=== PATIENT | male | born 1960 | race Caucasian/White ===

== ENCOUNTER 2024-05-21 18:40 | Emergency (ER) | payer OTHER, SELFPAY ==
[2024-05-21] VITALS (13 sets, daily range): BP systolic 151–191; BP diastolic 108–126; PULSE 126–133; RESP 18; TEMP 36.7–37.1; O2SAT 93–98; BMI 29.3
--- NOTE | 2024-05-21 21:03 | ED_ITS ---
HPI - General Adult General Chief complaint: Hypertension Stated complaint: High Blood Pressure Time Seen by Provider: 05/21/24 21:03 History of Present Illness HPI narrative: BP elevated, elevated HR Was fishing over the weekend?drinking involved No other symptoms Can tell something isn't right Previously had AFib- 63-year-old man presenting to the emergency department with concern of not feeling well with elevated blood pressure and elevated heart rate. Not complaining of a headache. Was fishing this last weekend. Just today though was feeling like something was not right. Notices heart rate was high as high as 140s. He says when as that he does make a practice checking his heart rate daily. His blood pressure also he measured today at 170s over 110. Is not having chest pain. Not short of breath. Not feeling lightheaded. Does have a history of atrial fibrillation and cardioversion and ultimately ablation. This also was done as he eventually entered atrial flutter he says. Was ablated again. Not currently on rate control or anticoagulation. Related Data Previous Rx's ?Medication ?Instructions ?Recorded apixaban 5 mg tablet 5 mg PO BID #60 tabs 05/22/24 Allergies Allergy/AdvReac Type Severity Reaction Status Date / Time No Known Drug Allergies Allergy Verified 05/21/24 19:02 Review of Systems Status of ROS: Reports: 6 or more systems reviewed and unremarkable except as noted in History and below PFSH PFS Social History Smoking Status: Never smoker How often do you have a drink containing alcohol: 4 or more times a week How many standard drinks containing alcohol do you have on a typical day: 1 or 2 AUDIT-C Alcohol total score: 4 Non-prescribed substance use: denies use Exam Narrative: Exam Narrative: Pleasant. NAD. Breathing easily. Lungs are clear. Heart is tachycardic with occasional irregular beat. Abdomen is overweight and soft. Extremities are well perfused without edema. Mentally quite clear. Speaking clearly. Const: Vital Signs, click to edit/add: Vital Signs - 24 hr 05/21/24 18:57 05/21/24 21:54 05/21/24 22:21 Temperature 98.0 F 98.8 F 98.6 F Pulse Rate 129 H Pulse Rate [Pulse Oximeter] 133 H 126 H Respiratory Rate 18 18 18 Blood Pressure 151/108 H Blood Pressure [Ri ght Upper Arm] 175/124 H 175/126 H Pulse Oximetry 96 95 94 Oxygen Delivery Me thod Room Air Room Air Room Air 05/21/24 22:22 05/21/24 22:30 05/21/24 22:44 Temperature Pulse Rate 128 H 128 H 130 H Pulse Rate [Pulse Oximeter] Respiratory Rate Blood Pressure 191/124 H Blood Pressure [Ri ght Upper Arm] Pulse Oximetry 95 96 98 Oxygen Delivery Me thod 05/21/24 22:45 05/21/24 23:00 05/21/24 23:15 Temperature Pulse Rate 130 H 128 H 127 H Pulse Rate [Pulse Oximeter] Respiratory Rate Blood Pressure Blood Pressure [Ri ght Upper Arm] Pulse Oximetry 98 94 93 Oxygen Delivery Me thod 05/21/24 23:18 05/21/24 23:19 05/21/24 23:30 Temperature Pulse Rate 127 H 127 H 128 H Pulse Rate [Pulse Oximeter] Respiratory Rate Blood Pressure 162/110 H Blood Pressure [Ri ght Upper Arm] Pulse Oximetry 95 94 94 Oxygen Delivery Me thod 05/21/24 23:45 05/22/24 00:22 05/22/24 00:27 Temperature Pulse Rate 127 H 129 H 129 H Pulse Rate [Pulse Oximeter] Respiratory Rate 19 21 Blood Pressure 176/113 H 170/116 H Blood Pressure [Ri ght Upper Arm] Pulse Oximetry 97 96 97 Oxygen Delivery Me thod 05/22/24 00:30 05/22/24 00:32 05/22/24 00:36 Temperature Pulse Rate 130 H 131 H 129 H Pulse Rate [Pulse Oximeter] Respiratory Rate 18 13 12 Blood Pressure 164/137 H 166/108 H Blood Pressure [Ri ght Upper Arm] Pulse Oximetry 96 97 97 Oxygen Delivery Me thod 05/22/24 00:41 05/22/24 00:45 05/22/24 00:46 Temperature Pulse Rate 77 Pulse Rate [Pulse Oximeter] Respiratory Rate 20 19 19 Blood Pressure 116/77 123/83 Blood Pressure [Ri ght Upper Arm] Pulse Oximetry 96 Oxygen Delivery Me thod 05/22/24 00:47 05/22/24 00:51 05/22/24 00:56 Temperature Pulse Rate Pulse Rate [Pulse Oximeter] Respiratory Rate 21 16 Blood Pressure 124/83 132/77 140/100 H Blood Pressure [Ri ght Upper Arm] Pulse Oximetry Oxygen Delivery Me thod Documenting provider has reviewed patient's vital signs: yes Course Vital Signs Vital signs: Initial Vital Signs Temperature 98.0 F 05/21/24 18:57 Temperature Source Temporal Artery Scan 05/21/24 18:57 Pulse Rate 133 H 05/21/24 18:57 Pulse Rhythm Irregular 05/21/24 18:57 Respiratory Rate 18 05/21/24 18:57 Blood Pressure 175/124 H 05/21/24 18:57 Blood Pressure Mean 141 H 05/21/24 18:57 Blood Pressure Position Sitting 05/21/24 18:57 Pulse Oximetry 96 05/21/24 18:57 Oxygen Delivery Method Room Air 05/21/24 18:57 Vital Signs Temperature 98.0 F 05/21/24 18:57 Pulse Rate 133 H 05/21/24 18:57 Respiratory Rate 18 05/21/24 18:57 Blood Pressure 175/124 H 05/21/24 18:57 Pulse Oximetry 96 05/21/24 18:57 Oxygen Delivery Method Room Air 05/21/24 18:57 Temperature 98.6 F 05/21/24 22:21 Pulse Rate 77 05/22/24 00:41 Respiratory Rate 16 05/22/24 00:51 Blood Pressure 140/100 H 05/22/24 00:56 Pulse Oximetry 96 05/22/24 00:41 Oxygen Delivery Method Room Air 05/21/24 22:21 Medications Administered Medications: Discontinued Medications Generic Name Dose Route Start Last Admin Trade Name Freq PRN Reason Stop Dose Admin Diltiazem HCl 20 mg 05/21/24 21:10 05/21/24 22:09 Diltiazem 5 Mg/Ml Inj IVP 05/21/24 21:11 20 mg ONCE ONE Administration Sodium Chloride 1,000 mls @ 1,000 mls/hr 05/21/24 21:10 05/21/24 23:17 0.9 % Sodium Chloride 1000 Ml IV 05/21/24 22:09 Infused .Q1H ONE Infusion Metoprolol Tartrate 5 mg 05/21/24 22:16 05/21/24 23:11 Metoprolol Tartrate 1 Mg/Ml Inj IVP 05/21/24 22:17 5 mg ONCE ONE Administration Medical Decision Making MDM Narrative Medical decision making narrative: EKG review prior to going into the room. Looks to be in a sinus tachycardia 136. Irregularly irregular beats though somewhat on auscultation. I would like to slow down this rhythm and see what is maybe underneath your. Will hydrate. Check basic labs. Monitor. Initial EKG been reviewed by me looks to show sinus tachycardia rate of 136. There is some aspect to lead to the might suggest more of an AFib a flutter picture. Dosed with diltiazem and then metoprolol. Reviewed again on monitor here showing looks to be a flutter. Confirmed on repeat EKG Did discuss this case with Cardiology. In agreement with cardioversion and then to Remi. Contacted Anesthesia for help with sedation for electrical cardioversion. Following cardioversion, returned to normal sinus. See procedural note Vitals stable and easily ambulatory from the ER with his spouse. See patient discharge plan for further discussion Stay well-hydrated ...with water :) Please revisit using your CPAP. Expect a call from [facility] to arrange follow-up. You received a dose of apixaban as anticoagulation here in the emergency department. Recommendations are to continue this twice daily for a month. Return for persistent increased heart rate, lightheadedness, chest pain, shortness of breath. Safe travels Lab Data Lab results reviewed: Yes I reviewed the patient's lab results Labs: Lab Results 05/21/24 05/21/24 Range/Units 21:57 23:14 Hgb 15.1 (13.5-17.5) gm/dL Sodium 137 (135-149) mmol/L Potassium 3.8 (3.6-5.1) mmol/L Chloride 99 (96-114) mmol/L Carbon Dioxide 28 (20-32) mmol/L Anion Gap 10 (7-15) mEq/L BUN 11 (7-30) mg/dL Creatinine 0.7 (0.5-1.5) mg/dL Estimated Creat Clear 80.53 Estimated GFR 104 ml/min Glucose 114 (60-115) mg/dL Calcium 8.9 (8.4-10.6) mg/dL Magnesium 2.0 (1.5-2.6) mg/dL TSH 6.070 H (0.270-4.20) uIU/mL SARS-CoV-2 (PCR) Negative SARS-CoV-2 (Negative) Influenza Type A (PCR) Negative PCR FLU A (Negative) Influenza Type B (PCR) Negative PCR FLU B (Negative) Lab Acknowledgement Test Added ECG Data Attestation: I personally reviewed and interpreted this ECG as follows: (#1 sinus tach at 136 #2 atrial flutter at 128 #3 post-electrical cardioversion normal sinus at 77) Critical Care Time Critical Care Time Critical Care Time: Yes Attestation: The patient required my highest level preparedness to intervene emergently and I personally spent this critical care time directly and personally managing the patient. This critical care time included: Obtaining a history; Examining the patient; Pulse oximetry; Ordering and reviewing of studies; Arranging urgent treatment with development of a management plan; Evaluation of patients response to treatment; Frequent reassessment discussions with other providers. This critical care time was performed to assess and manage the high probability of imminent life-threatening deterioration that could result in multiorgan failure. It was exclusive of separate billable procedures and treating other patients and teaching time. Total Critical Care Time in Minutes: 50 Discharge Plan Discharge Clinical Impression: Atrial flutter with rapid ventricular response Patient Disposition: Home w/ Parent or Adult Condition: Improved Instructions: Atrial Flutter (ED), Blood Thinners (ED) Additional Instructions: Stay well-hydrated ...with water :) Please revisit using your CPAP. Expect a call from [facility] to arrange follow-up. You received a dose of apixaban as anticoagulation here in the emergency department. Recommendations are to continue this twice daily for a month. Return for persistent increased heart rate, lightheadedness, chest pain, shortness of breath. Safe travels Prescriptions: New apixaban 5 mg tablet 5 mg PO BID Qty: 60 2RF Follow Up/Referrals: Provider,Not a Local [Primary Care Provider] - Stand Alone Forms: [employer] Info Instructions Procedures Additional Procedures Procedure name: Electrical cardioversion Pre procedure diagnosis: Atrial flutter with rapid ventricular response Post procedure diagnosis: Atrial flutter with rapid ventricular response Written consent by: patient Site marking: not applicable Verification/time out: correct patient Conclusion: patient tolerated procedure Additional comments: Following appropriate sedation was propofol, shocked at 200 joules. Synced cardioversion. Returned to normal sinus directly. Rate in the 80s
[2024-05-21] MEDS: 0.9 % SODIUM CHLORIDE 1000 ml 1,000 ML IV (22:09)
[2024-05-21] MEDS: dilTIAZem 5 MG/ML inj 20 MG IVP (22:09)
[2024-05-21 22:15] LABS: Chloride* 99 mmol/L (96-114)
[2024-05-21 22:16] LABS: Hemoglobin* 15.1 gm/dL (13.5-17.5); Potassium* 3.8 mmol/L (3.6-5.1); Sodium* 137 mmol/L (135-149)
[2024-05-21 22:18] LABS: Creatinine* 0.7 mg/dL (0.5-1.5); Est. Creatinine Clearance* 80.53; Estimated Glomerular Filt Rate 104 ml/min
[2024-05-21 22:19] LABS: Anion Gap 10 mEq/L (7-15); Blood Urea Nitrogen* 11 mg/dL (7-30); Calcium* 8.9 mg/dL (8.4-10.6); Carbon Dioxide* 28 mmol/L (20-32); Glucose* 114 mg/dL (60-115)
[2024-05-21 22:39] LABS: PCR FLU A Negative PCR FLU A (Negative); PCR FLU B Negative PCR FLU B (Negative); SARS PCR* Negative SARS-CoV-2 (Negative)
[2024-05-21] MEDS: METOPROLOL TARTRATE 1 MG/ML inj 5 MG IVP (23:11)
[2024-05-22] VITALS (11 sets, daily range): BP systolic 116–176; BP diastolic 77–137; PULSE 77–131; RESP 12–21; O2SAT 96–97
--- NOTE | 2024-05-22 00:47 | W.ANESCHARGE ---
Anesthesia Charges Start Date/Time Anesthesia Start Date: 05/22/24 Anesthesia Start Time: 00:32 Stop Date/Time Anesthesia Stop Date: 05/22/24 Anesthesia Stop Time: 00:44 Summary Emergency: EDUCATION INTERN Coding CPT Codes CPT Codes: ANESTH CORRECT HEART RHYTHM - 07524 ([id number]) P2 - PATIENT W/MILD SYST DISEASE, QZ - EDUCATION INTERN SVC W/O EQUIPMENT OPERATOR/LABORER BY Additional Codes: Summary - Emergency: EDUCATION INTERN ([id number])
== END 2024-05-22 01:07 | disposition home or self-care (01) ==
PROVIDERS: Emergency Provider Family Medicine
DX: I48.91 Unspecified atrial fibrillation (principal); R00.0 Tachycardia, unspecified
CPT/HCPCS: 92960; 00410; 36415; 80048; 83735; 84443; 85018; 87631; 93005; 99140; 99284; 99291; J2704; J7030

== ENCOUNTER 2024-12-09 10:27 | Emergency (ER) | payer OTHER, SELFPAY ==
[2024-12-09] VITALS (9 sets, daily range): BP systolic 116–148; BP diastolic 97–112; PULSE 108–147; RESP 12–22; TEMP 36.4; O2SAT 95–97
--- OUTSIDE RECORDS SUMMARY | 2024-12-09 10:29 | XMS_ITS | Clinical Summary ---
Author Organization [employer] [facility] Address [address] [place] [id number] Care Team Providers Care Fleet Administrator Name Role Phone Allie Shea DO Primary Care Provider Allergies No known active allergies Medications FISH OIL 1,000 MG CAP 1800 mg, 1-2 times daily Active MEDICATION ORDER COMPOSER Adrenal Support, Once daily Active ENZYME DIGEST CAP take 1 tablets with most meals Active CPAPIndications :JOSÉ MIGUEL (obstructive sleep apnea) As directed. CPAP [id number], heated humidifier, mask, headgear, filters and tubing. For home use. Length of Need:99 1 unit 0 1 Active Additional Information Patient not taking.Informant: Patient's Recall, Reported on 06/07/2024 ORDER - MEDICATION ORDER COMPOSER 1-2 Tabs once daily. Total Heart supplement 1 Active medication order composer omega 3, stress support, immune support. vitamin d 0 3 Active Eliquis 5 mg tablet Take 1 Tablet by mouth two times daily. 5 Active medication order composer Pt taking old Metoprolol tabs. Not sure of strength. 1 tab QD. 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 Boyle keno terminal operator (current) use of anticoagulants 04/01/2011 Overview (06/09/2010): -INR goal range venous 2.0-3.0 or finger stick 2.5-3.5 Family History Medical History Relation Name Comments Other Father colon polyps Other Mother d75 hx of proba ble breast ca w met Relation Name Status Comments Father Mother Social History Tobacco Use Types Packs/Day Years Used Date Smoking Tobacco: Passive Smo ke Exposure - Never Smoker Cigars Smokeless Tobacco: Current Chew Tobacco Cessation:Counseling Given: Yes Comments:chews Alcohol Use Standard Drinks/Week Comments Yes 0 (1 standard drink = 0.6 oz pur e alcohol) 3-4 drinks a day PHQ-2 Answer Date Recorded PHQ-2 TOTAL SCORE 0 01/17/2023 Sex and Gender Information Value Date Recorded Sex Assigned at Not on file Legal Sex Male 7:27 AM ASSISTANT CURATOR Gender Identity Not on file Sexual Orientation Not on file Obstetrics History Last Filed Vital Signs Vital Sign Reading Time Taken Comments Blood Pressure 124/86 06/07/2024 2:03 PM ASSISTANT CURATOR Pulse 57 06/07/2024 2:03 PM ASSISTANT CURATOR Temperature 36.9 C (98.5 F) 03/24/2013 9:05 AM ASSISTANT CURATOR Respiratory Rate 18 02/15/2012 8:51 AM CDT Oxygen Saturation 99% 06/07/2024 2:03 PM ASSISTANT CURATOR Inhaled Oxygen Concentration - - Weight 98 kg (216 lb) 06/07/2024 2:03 PM ASSISTANT CURATOR Height 179.1 cm (5' 10.5) 06/07/2024 2:[address] Body Mass Index 30.55 06/07/2024 2:03 PM ASSISTANT CURATOR Plan of Treatment Health Maintenance Due Date Last Done Comments Depression screening for age 12+ 1972 Pneumococcal series for age 50+ (1 of 2 - PCV) 10/27/1979 Colonoscopy through age 75 2005 Zoster (shingles) series for age 50+ (1 of 2) 2010 Tetanus booster 12/18/2020 12/18/2010 (Declined) COVID-19 vaccine series ( - ) 12/25/2023 Influenza Vaccine (#1) 2024 BMI (ht and wt on same day) for age 18+ 06/07/2025 06/07/2024, 01/17/2023 Lipids for age 45-75 01/18/2028 01/17/2023, 12/11/2010 RSV vaccine for adults or (1 - 1-dose 75+ series) 10/27/2035 HIV for age 15-65 Completed 01/17/2023 Hepatitis C screening for ag e 18-79 Completed 01/17/2023 Hepatitis B series for 19+ Aged Out N o longer eligible based on patient's age to complete this topic Procedures Procedure Name Priority Date/Time Associated Diagnosis Comments ANTI HIV 1/2 Routine 01/17/2023 9:00 AM CDT Screening for HIV (human immunodeficiency virus) ANTI HCV Routine 01/17/2023 9:00 AM CDT Need for hepatitis C screening test LIPID PANEL W REFLEX MEASURED LDL Routine 01/17/2023 9:00 AM CDT Hyperlipidemia, unspecified hyperlipidemia type from Last 3 Months or Most Recently Relevant to Health Maintenance Results * (ABNORMAL) LIPID PANEL W REFLEX MEASURED LDL (01/17/2023 9:00 AM CDT) CHOLESTEROL,TOTAL 245(H) 100 - 199 mg/dL 01/17/2023 4:59 PM CDT [facility] Comment: Cholesterol, Total Reference Ranges Desirable <200 mg/dL Borderline 200-239 mg/dL High >=240 mg/dL TRIGLYCERIDES 66 <150 mg/dL 01/17/2023 4:59 PM CDT [facility] HDL CHOLESTEROL 97 >40 mg/dL 4:59 PM CDT [facility] NON-HDL CHOLESTEROL 148(H) <145 mg/dl 01/17/2023 4:59 PM CDT [facility] CHOL/HDL RATIO 2.53 <4.50 01/17/2023 4:59 PM CDT [facility] LDL CHOLESTEROL 135(H) <=130 mg/dL 01/17/2023 4:59 PM CDT [facility] VLDL CHOLESTEROL 13 <=30 mg/dL 01/17/2023 4:59 PM CDT [facility] PROVIDER ORDERED STATUS RANDOM 01/17/2023 4:59 PM CDT [facility] Blood BLOOD SPECIMEN / Unknown Venipuncture / Unknown 01/17/2023 9:00 AM CDT 01/17/2023 9:01 AM CDT Allie Noguerat DO CHEMISTRY Final Resul t [facility] [address] [place] [address], * ANTI HCV (01/17/2023 9:00 AM CDT) HEPATITIS C ANTIBODY Non-Reacti ve Non-React opal 01/17/2023 4:40 PM CDT [facility] Comment:Please note, per www .CDC.gov: If a patient is known to be at high risk of HCV infection, or is symptomatic, and the physician's suspicion of HCV infection is high, HCV RNA testing is often employed and is of diagnostic value, even after an initial negative anti-HCV test result. Blood BLOOD SPECIMEN / Unknown Venipuncture / Unknown 01/17/2023 9:00 AM CDT 01/17/2023 9:01 AM CDT us Allie Shea DO SEND OUTS Final Resul t Performing Organization Address [facility] Co de Phone Number [facility] [address] [place] [phone], [place] * ANTI HIV 1/2 [17357.0] (01/17/2023 9:00 AM CDT) HIV-1/HIV-2 SCREEN Non-Reacti ve Non-Reacti ve 01/17/2023 4:39 PM CDT [facility] Comment:HIV-1 p24 and HIV-1/ HIV-2 Ab Not Detected. Blood BLOOD SPECIMEN / Unknown Venipuncture / Unknown 01/17/2023 9:00 AM CDT 01/17/2023 9:01 AM CDT us Allie Shea DO SEND OUTS Final Resul t Performing Organization Address [facility] de Phone Number [facility] [address] [place] [phone], from Last 3 Months or Most Recently Relevant to [place] [id number] [facility] [employer] Advance Directives Documents on File Type Date Recorded Patient Shrimp Trawler Captain Expl anation Healthcare Directive 05/10/2010 * Full Code (Latest Code Status on File) Date Activated Date Inactivated Comments 01/18/2011 7:40 AM 01/19/2011 1:00 PM * Full Code Date Activated Date Inactivated Comments 12/24/2010 8:09 AM 12/24/2010 1:54 PM * Full Code Date Activated Date Inactivated Comments 06/09/2010 8:19 AM 06/09/2010 1:16 PM * Full Code Date Activated Date Inactivated Comments 05/19/2010 9:21 AM 05/20/2010 8:45 PM * Full Code Date Activated Date Inactivated Comments 05/19/2010 9:09 AM 05/19/2010 9:21 AM Care Teams Fleet Administrator Relationship Specialty Start Date End Date Allie Shea DO [address] [place] [address] PCP - General Family Practice 05/11/10
[2024-12-09 11:14] LABS: Hematocrit 45.0 % (37.0-53.0); Hemoglobin* 14.8 gm/dL (13.5-17.5); Immature Granulocytes Abs Auto 0.01 K/uL (0.00-0.30); Immature Granulocytes Pct Auto 0.1 %; Lymphocytes Absolute Auto 2.32 K/uL (0.90-2.90); Mean Corpuscular HGB Conc 33 gm/dL (32-36); Mean Corpuscular Hemoglobin 31 pg (26-34); Mean Corpuscular Volume 94 fL (80-100); RDW Coefficient of Variation % 13.0 % (11.5-15.5); Red Blood Count 4.81 m/uL (4.30-5.90); White Blood Count* 7.46 K/uL (4.50-11.00)
[2024-12-09 11:26] LABS: Slide Review Reflex No
[2024-12-09] MEDS: METOPROLOL TARTRATE 1 MG/ML inj 5 MG IVP ×2 (11:35→13:07)
[2024-12-09] MEDS: MAGNESIUM IV 2 GM/50 ML PIGGYBACK IVPB (11:44)
[2024-12-09 11:54] LABS: Chloride* 106 mmol/L (96-114); Sodium* 137 mmol/L (135-149)
[2024-12-09 11:55] LABS: Potassium* 4.1 mmol/L (3.6-5.1)
[2024-12-09 11:57] LABS: Blood Urea Nitrogen* 17 mg/dL (7-30); Creatinine* 0.9 mg/dL (0.5-1.5); Est. Creatinine Clearance* 79.48; Estimated Glomerular Filt Rate 95 ml/min
[2024-12-09 11:58] LABS: Anion Gap 7 mEq/L (7-15); Calcium* 9.1 mg/dL (8.4-10.6); Carbon Dioxide* 24 mmol/L (20-32); Glucose* 110 mg/dL (60-115)
[2024-12-09 12:07] LABS: Ethanol* < 0.01 % (0.01-0.03)
--- NOTE | 2024-12-09 12:34 | ED.GENADULT ---
HPI - General Adult General Chief complaint: Arrhythmia/Palpitations Stated complaint: Heart Rhythm Issue Time Seen by Provider: 12/09/24 10:58 History of Present Illness HPI narrative: Very pleasant 64-year-old gentleman with a history of atrial fibrillation/flutter presents to the ER today with atrial flutter and tachycardia. History from the patient is that he has a long history of paroxysmal AFib and flutter. Sounds like this dates back 10 or 15 years. He has a long relationship with [facility]. He has had at least 2 previous ablation is a and has had multiple cardioversions. After his most recent ablation he had gone several years with no symptoms of tachycardia. He did have an episode in May that required cardioversion. His most recent visit with Cardiology was in the spring of this year. It sounds like he was stable at that time. He subsequently has taken himself off of metoprolol on on Eliquis. Had not been taking any regular Eliquis since June or July. He was on a fishing trip to [place] last week and on Tuesday or felt himself go into flutter. His heart rate has been in the 140s ever since that time. Does not really go way. He recalls that in the past when he goes into flutter he needs cardioversion to get out of it. He is otherwise feeling fine. No lightheadedness. No presyncope. No chest pain. No shortness of breath. No swelling in his legs. He finally got home from his fishing trip on Tuesday. Yesterday he was actually able to mow his lawn without dyspnea. However his heart remains 140. On the urging of his family members he did restart his Eliquis on Tuesday night and took 2 doses yesterday on Tuesday. He also took a dose of metoprolol (he thinks, 25 mg p.o.). His heart rate remains 140. His [id number] are encouraged him to come to the ER today. Related Data Home Medications ?Medication ?Instructions ?Recorded ?Confirmed No Known Home Medications 12/09/24 12/09/24 Allergies Allergy/AdvReac Type Severity Reaction Status Date / Time No Known Drug Allergies Allergy Verified 05/21/24 19:02 PFSH PFS Social History Smoking Status: Never smoker How often do you have a drink containing alcohol: 4 or more times a week How many standard drinks containing alcohol do you have on a typical day: 1 or 2 AUDIT-C Alcohol total score: 4 Non-prescribed substance use: denies use Exam Narrative: Exam Narrative: Constitutional: Appears well-developed and well-nourished. Alert. Conversant. Non toxic. HENT: Head: Atraumatic. Nose: Nose normal. Mouth/Throat: Oral mucosa is clear and moist. no trismus. Pharynx normal. Tonsils symmetric. No tonsillar enlargement, erythema, or exudate. Eyes: Conjunctivae normal. EOM normal. Pupils equal, round, and reactive to light. No scleral icterus. Neck: Normal range of motion. Neck supple. No tracheal deviation present. Cardiovascular: Tachycardic, 145 regular rhythm with atrial flutter and 2:1 conduction on the monitor No gallop. No friction rub. No murmur heard. Symmetric radial and PT artery pulses . No JVD Pulmonary/Chest: Effort normal. No stridor. No respiratory distress. No wheezes. No rales. No rhonchi . No tenderness. Abdominal: Soft.o distension. No mass. No tenderness. No rebound. No guarding. Musculoskeletal: RUE: Normal range of motion. No tenderness. No deformity LUE: Normal range of motion. No tenderness. No deformity RLE: Normal range of motion. No edema. No tenderness. No deformity LLE: Normal range of motion. No edema. No tenderness. No deformit Neurological: Alert and oriented to person, place, and time. Normal strength. CN II-VII intact. No sensory deficit. GCS eye subscore is 4. GCS verbal subscore is 5. GCS motor subscore is 6. Normal coordination Skin: Skin is warm and dry. No rash noted. No pallor. Normal capillary refill. Psychiatric: Normal mood. Normal affect. Const: Vital Signs, click to edit/add: Vital Signs - 24 hr 12/09/24 10:39 Temperature 97.5 F L Pulse Rate [Pulse Oximeter] 147 H Respiratory Rate 18 Blood Pressure [Le ft Upper Arm] 148/112 H Pulse Oximetry 97 Oxygen Delivery Me thod Room Air Course Vital Signs Vital signs: Initial Vital Signs Temperature 97.5 F L 12/09/24 10:39 Temperature Source Temporal Artery Scan 12/09/24 10:39 Pulse Rate 147 H 12/09/24 10:39 Respiratory Rate 18 12/09/24 10:39 Blood Pressure 148/112 H 12/09/24 10:39 Blood Pressure Mean 124 H 12/09/24 10:39 Blood Pressure Position Supine 12/09/24 10:39 Pulse Oximetry 97 12/09/24 10:39 Oxygen Delivery Method Room Air 12/09/24 10:39 Vital Signs Temperature 97.5 F L 12/09/24 10:39 Pulse Rate 147 H 12/09/24 10:39 Respiratory Rate 18 12/09/24 10:39 Blood Pressure 148/112 H 12/09/24 10:39 Pulse Oximetry 97 12/09/24 10:39 Oxygen Delivery Method Room Air 12/09/24 10:39 Temperature 97.5 F L 12/09/24 10:39 Pulse Rate 147 H 12/09/24 10:39 Respiratory Rate 18 12/09/24 10:39 Blood Pressure 148/112 H 12/09/24 10:39 Pulse Oximetry 97 12/09/24 10:39 Oxygen Delivery Method Room Air 12/09/24 10:39 Medications Administered Medications: Discontinued Medications Generic Name Dose Route Start Last Admin Trade Name Freq PRN Reason Stop Dose Admin Magnesium Sulfate 2 gm in 50 mls @ 25 mls/hr 12/09/24 11:00 12/09/24 11:44 Magnesium Iv IVPB 12/09/24 12:59 25 mls/hr ONCE ONE Administration Sodium Chloride 1,000 mls @ 1,000 mls/hr 12/09/24 11:00 12/09/24 13:06 0.9 % Sodium Chloride 1000 Ml IV 12/09/24 11:59 Infused .Q1H RUBENS Infusion Metoprolol Tartrate 5 mg 12/09/24 10:59 12/09/24 11:35 Metoprolol Tartrate 1 Mg/Ml Inj IVP 12/09/24 11:00 5 mg ONCE ONE Administration Metoprolol Tartrate 5 mg 12/09/24 12:40 12/09/24 13:07 Metoprolol Tartrate 1 Mg/Ml Inj IVP 12/09/24 12:41 5 mg ONCE ONE Administration Medical Decision Making MDM Narrative Medical decision making narrative: Pleasant 64-year-old gentleman with a known long history of paroxysmal AFib/flutter. He presents to the ER today in atrial flutter with RVR. His current episode actually started about 3 or 4 days ago on Tuesday or and has been persistent since then. This patient had taken himself off of his anticoagulation several months ago. Although he restarted Eliquis yesterday, he has not therapeutically anticoagulated where he would be safe from potential thrombo embolism. Therefore cardioversion is contraindicated. This is a stable tachycardia. He is relatively asymptomatic. Laboratory workup shows no evidence for hypokalemia, cardiac ischemia, renal failure, hyperthyroidism, hypo magnesemia or other clear cause for his a flutter. Unclear but could be related to alcohol consumption. He says he was not drinking heavy well on his fishing trip but did have more alcohol than normal. He does require rate control because of the risk of developing tachycardia associated cardiomyopathy. Started with IV metoprolol 5 mg IV here in the ER and heart rate did come down from 145 down to the 120 range. Patient remained with normal blood pressure and minimal symptoms. He can feel a fluttering but otherwise feels fine. Discussed with cardiology from [place], Dr. Sims. He recommends transfer to [place] for ongoing rate control with plans for tete guided cardioversion which can be done by the cardiology team at [place]. Patient begrudgingly accepts this plan of care. However he adamantly wants to transfer and his own private car to [place]. He does not want to take an ambulance. He does have a reliable family member who can take him there. Since he has been relatively stable while having his tachycardia since , I think there is low risk for immediate hemodynamic compromise during the process of transfer. Lab Data Labs: Lab Results 12/09/24 12/09/24 Range/Units 10:56 11:31 WBC 7.46 (4.50-11.00) K/uL RBC 4.81 (4.30-5.90) m/uL Hgb 14.8 (13.5-17.5) gm/dL Hct 45.0 (37.0-53.0) % MCV 94 (80-100) fL MCH 31 (26-34) pg MCHC 33 (32-36) gm/dL RDW Coeff of Davina 13.0 (11.5-15.5) % Plt Count 215 (140-440) K/uL Neut % (Auto) 56.7 (42.0-72.0) % Lymph % (Auto) 31.1 (20-44) % Ford % (Auto) 7.6 (0.0-11.0) % Eos % (Auto) 4.0 (0.0-7.0) % Baso % (Auto) 0.5 (0.0-3.0) % Neut # (Auto) 4.22 (1.7-7.0) K/uL Lymph # (Auto) 2.32 (0.90-2.90) K/uL Ford # (Auto) 0.60 (0.00-0.90) K/UL Eos # (Auto) 0.30 (0.00-0.50) K/uL Baso # (Auto) 0.04 (0.00-0.30) K/uL Abs Immat Gran (auto) 0.01 (0.00-0.30) K/uL Imm/Tot Granulo (auto) 0.1 % Sodium 137 (135-149) mmol/L Potassium 4.1 (3.6-5.1) mmol/L Chloride 106 (96-114) mmol/L Carbon Dioxide 24 (20-32) mmol/L Anion Gap 7 (7-15) mEq/L BUN 17 (7-30) mg/dL Creatinine 0.9 (0.5-1.5) mg/dL Estimated Creat Clear 79.48 Estimated GFR 95 ml/min Glucose 110 (60-115) mg/dL Calcium 9.1 (8.4-10.6) mg/dL Magnesium 1.9 (1.5-2.6) mg/dL TSH 2.660 (0.270-4.200) uIU/mL Ethyl Alcohol < 0.01 (0.01-0.03) % ECG Data Attestation: I personally reviewed and interpreted this ECG as follows: Interpretation: Atrial flutter with rapid ventricular response Rate 145 MO interval not applicable QRS axis is normal. No pathologic Q-waves. No ST segment elevation or depression. Nonspecific T-wave changes due to superimposed flutter waves. QTC 416 Discharge Plan Discharge Clinical Impression: Atrial flutter with rapid ventricular response Patient Disposition: [facility] Andrei Dominguez Prescriptions: No Action No Known Home Medications Stand Alone Forms: MyHealth Info Instructions
[2024-12-09 12:44] LABS: TSH With Reflex to FT4* 2.660 uIU/mL (0.270-4.200)
== END 2024-12-09 14:41 | disposition short-term general hospital (02) ==
PROVIDERS: Emergency Provider Emergency Medicine; PCP Family Medicine
DX: I48.20 Chronic atrial fibrillation, unspecified (principal)
CPT/HCPCS: 36415; 80048; 82077; 83735; 84443; 85025; 93005; 96365; 99284; 99285; J3475; J7030